=== PATIENT | male | born 1960 | race Two or more races ===

== ENCOUNTER 2021-02-02 14:13 | Emergency (ER) | payer OTHER ==
[~2021-02-02] VITALS: Ht 172.7 cm; Wt 90.7 kg
[2021-02-02] MEDS ORDERED: DICLOFENAC POTA50 MG PO (16:32)
[2021-02-02] MEDS ORDERED: ORPHENADRINE C100 MG PO (16:32)
== END 2021-02-02 16:46 ==
LOC: ER 14:13
DX: S43.402A Unspecified sprain of left shoulder joint, initial encounter (principal); S20.212A Contusion of left front wall of thorax, initial encounter; S70.02XA Contusion of left hip, initial encounter; W18.30XA Fall on same level, unspecified, initial encounter; Y92.89 Other specified places as the place of occurrence of the external cause